=== PATIENT | male | born 1945 | race Caucasian/White ===

== ENCOUNTER 2018-01-01 13:33 | Outpatient (CLI) | payer MEDICARE, BC ==
[2018-01-01 15:31] LABS: Hemoglobin 14.5 g/dL (14.0-18.0); Mean Corpuscular HGB CONC 35.2 g/dL (32.0-36.0); Mean Corpuscular Hemoglobin 30.7 pg (27.0-31.0); Mean Corpuscular Volume 87.1 fL (78.0-98.0); Mean Platelet Volume 8.2 fL (7.4-10.4); Platelet Count 221 thou/uL (130-400); Red Blood Cell (RBC) Count 4.73 mill/uL (4.70-6.10); White Blood Cell (WBC) Count 9.4 thou/uL (4.8-10.8)
[2018-01-01 15:36] LABS: INR-International Normal Ratio 0.9; PTT 28.1 SEC (22.9-36.1); Prothrombin Time 11.9 SEC (12.0-14.7)
[2018-01-01 15:52] LABS: Anion Gap 20 mmol/L (10-20); BUN (Urea Nitrogen) 15 mg/dL (8.4-25.7); Calc. Creatinine Clearance 0 mL/min (70-130); Carbon Dioxide 21 mmol/L (23-31); Chloride 99 mmol/L (98-107); Estimated GFR-MDRD 73; Glucose 251 mg/dL (83-110); Potassium 3.6 mmol/L (3.5-5.1); Sodium 136 mmol/L (136-145)
== END 2018-01-01 13:34 | disposition home or self-care (01) ==
LOC: LABBT 13:33
PROVIDERS: ATTEND Internal Medicine Cardiovascular Disease
DX: Z01.818 Encounter for other preprocedural examination (principal); Z51.81 Encounter for therapeutic drug level monitoring; E78.00 Pure hypercholesterolemia, unspecified; Z79.01 Long term (current) use of anticoagulants
CPT/HCPCS: 80048; 85027; 85610; 85730

== ENCOUNTER 2018-01-04 12:11 | Day surgery (SDC) | payer MEDICARE, BC ==
[2018-01-01 14:11] VITALS: BMI 32.2
[2018-01-04] MEDS ORDERED: Lidocaine 1% (PF) 30 ML VIAL ONE (16:06)
[2018-01-04] MEDS ORDERED: CEFAZOLIN 1 GM VIAL ONE ×2 (16:07→16:08)
[2018-01-04] MEDS ORDERED: CEFAZOLIN/Water 2 GM/20 ML SYRINGE ONE (16:07)
[2018-01-04] MEDS ORDERED: Fentanyl 100 MCG/2 ML VIAL ONE (16:27)
[2018-01-04] MEDS ORDERED: Midazolam HCl 2 mg/2 ml Vial ONE (16:27)
[2018-01-04] MEDS ORDERED: Propofol 500 MG/50 ML VIAL ONE (16:27)
[2018-01-04] MEDS ORDERED: PROPOFOL 20 ML ONE (17:14)
--- NOTE | 2018-01-04 18:50 | RAD ---
CHEST ONE VIEW: HISTORY: Pacemaker adjustment. FINDINGS: The cardiac silhouette is magnified. It is partially obscured by an elevated right hemidiaphragm. T he pulmonary vasculature is slightly engorged. The mediastinum is midline. A dual-lead left-sided c ardiac defibrillator is in place. No evidence of pneumothorax. IMPRESSION: 1. Elevated right hemidiaphragm, cause not apparent. 2. Borderline pulmonary vascular congestion. POS: [facility]
== END 2018-01-04 19:47 | disposition home or self-care (01) ==
LOC: CCL 12:11
PROVIDERS: ATTEND Internal Medicine Cardiovascular Disease
PROC: 0JH60PZ Insertion of Cardiac Rhythm Related Device into Chest Subcutaneous Tissue and Fascia, Open Approach (ICD-10-PCS; principal; 2018-01-04)
DX: I42.8 Other cardiomyopathies (principal); I11.0 Hypertensive heart disease with heart failure; I50.22 Chronic systolic (congestive) heart failure; E11.9 Type 2 diabetes mellitus without complications; E78.5 Hyperlipidemia, unspecified; Z79.82 Long term (current) use of aspirin; Z79.84 Long term (current) use of oral hypoglycemic drugs; Z79.899 Other long term (current) drug therapy; Z88.8 Allergy status to other drugs, medicaments and biological substances
CPT/HCPCS: 33216; 71045; 93642; C1896; J0690; J2001; J2250; J2704; J3010; J3490

== ENCOUNTER 2019-03-15 10:54 | Outpatient (CLI) | payer MEDICARE, BC ==
[2019-03-15 13:36] LABS: #Basophils 0.1 thou/uL (0.0-0.2); #Eosinphils 0.1 thou/uL (0.0-0.7); #Lymphocytes 1.8 thou/uL (1.20-3.40); #Monocytes 1.2 thou/uL (0.11-0.59); #Neutrophils 8.7 thou/uL (1.40-6.50); %Basophils 0.8 % (0.0-1.0); %Eosinophils 1.2 % (0.0-10.0); %Monocytes 9.9 % (0.0-10.0); %Neutrophils 73.2 % (42.0-75.0); Hemoglobin 16.4 g/dL (14.0-18.0); Mean Corpuscular HGB CONC 34.3 g/dL (32.0-36.0); Mean Corpuscular Volume 87.3 fL (78.0-98.0); Mean Platelet Volume 9.1 fL (7.4-10.4); Platelet Count 252 thou/uL (130-400); Red Blood Cell (RBC) Count 5.49 mill/uL (4.70-6.10); White Blood Cell (WBC) Count 11.9 thou/uL (4.8-10.8)
[2019-03-15 14:12] LABS: ALT (SGPT) 16 U/L (8-55); AST (SGOT) 11 U/L (5-34); Albumin 4.7 g/dL (3.4-4.8); Alkaline Phosphatase 113 U/L (40-110); Anion Gap 21 mmol/L (10-20); BUN (Urea Nitrogen) 38 mg/dL (8.4-25.7); Bilirubin, Total 1.4 mg/dL (0.2-1.2); Calc. Creatinine Clearance 0 mL/min (70-130); Calcium 9.5 mg/dL (7.8-10.44); Carbon Dioxide 20 mmol/L (23-31); Chloride 94 mmol/L (98-107); Estimated GFR-MDRD 37; Globulin 2.6 g/dL (2.4-3.5); Glucose 427 mg/dL (83-110); Potassium 4.6 mmol/L (3.5-5.1); Protein, Total 7.3 g/dL (5.8-8.1); Sodium 130 mmol/L (136-145)
--- NOTE | 2019-03-16 07:18 | EKG ---
Test Reason : Blood Pressure : / mmHG Vent. Rate : 077 BPM Atrial Rate : 077 BPM P-R Int : 200 ms QRS Dur : 102 ms QT Int : 430 ms P-R-T Axes : 048 -16 -11 degrees QTc Int : 486 ms Normal sinus rhythm Cannot rule out Anterior infarct , age undetermined Nonspecific ST-T changes Abnormal ECG When compared with ECG of 21-NOV-2010 15:10, Minimal criteria for Anterior infarct are now Present Confirmed by DR. Yisel MATTHEW ([id number]) on 03/16/2019 7:17:40 AM Referred By: CHLOE Confirmed By:DR. Yisel MATTHEW
== END 2019-03-15 10:55 | disposition home or self-care (01) ==
LOC: LABBT 10:54
PROVIDERS: ATTEND Internal Medicine Cardiovascular Disease
DX: Z01.818 Encounter for other preprocedural examination (principal); R94.39 Abnormal result of other cardiovascular function study
CPT/HCPCS: 80053; 85025; 93005; 93010

== ENCOUNTER 2019-03-16 06:04 | Observation (INO) | payer MEDICARE, BC ==
[2019-03-15 11:14] VITALS: BMI 31.5
[2019-03-16] MEDS ORDERED: Heparin 0 ML ONE (06:39)
[2019-03-16] MEDS ORDERED: Heparin 10,000 UNITS/1 ML VIAL ONE (06:40)
[2019-03-16] MEDS ORDERED: Lidocaine 1% (PF) 30 ML VIAL ONE (06:40)
[2019-03-16 06:59] LABS: Cardiac Risk 3.3 (Less than 4.5)
[2019-03-16] MEDS ORDERED: Midazolam HCl 2 mg/2 ml Vial ONE (07:04)
[2019-03-16] MEDS ORDERED: Fentanyl 100 MCG/2 ML VIAL ONE (07:04)
[2019-03-16] MEDS ORDERED: Protamine Sulfate 50 MG/5 ML VIAL ONE (07:23)
[2019-03-16] MEDS ORDERED: Nitroglycerin 0.4 MG TAB (25 Tab Bottle) SL PRN (07:27)
[2019-03-16] MEDS ORDERED: Sodium Chloride 0.9% 200 ML IV PRN (07:27)
[2019-03-16] MEDS ORDERED: Acetaminophen/Codeine 30-300mg Tablet PO PRN ×2 (07:27)
[2019-03-16] MEDS ORDERED: Acetaminophen 500 MG TAB PO PRN (07:30)
[2019-03-16] MEDS ORDERED: Sodium Chloride 0.9% 1,000 ML IV SCH ×2 (07:30→13:00)
[2019-03-16] MEDS ORDERED: Allopurinol 300 MG TAB PO SCH (07:45)
[2019-03-16] MEDS ORDERED: Dextrose 5% in Water 1,000 ML IV PRN (07:46)
[2019-03-16] MEDS ORDERED: Dextrose 50% Abboject 50 ML SYRINGE SLOW IVP PRN (07:46)
[2019-03-16] MEDS ORDERED: Iopamidol 370 76% 100 ML VIAL ONE (09:22)
[2019-03-16] MEDS: Carvedilol 6.25 MG TAB PO SCH ×2 (10:58→17:03)
[2019-03-16] MEDS: glyBURIDE 5 MG TAB PO SCH (10:59)
[2019-03-16] MEDS: Insulin Regular 300 UNITS/3 ML VIAL SC PRN ×3 (10:59→21:27)
[2019-03-16] MEDS: Aspirin 81 mg Enteric Coated Tablet PO SCH (10:59)
[2019-03-16] MEDS: Bupropion 150 MG XL TAB PO SCH ×2 (10:59→21:27)
[2019-03-16] MEDS: Ivabradine 5 MG TAB PO SCH ×2 (11:02→21:27)
[2019-03-16] MEDS: Furosemide 80 MG TAB PO SCH (14:38)
--- NOTE | 2019-03-16 15:48 | NM ---
Exam: Nuclear medicine ventilation/perfusion scan HISTORY: Shortness of breath COMPARISON: none TECHNIQUE: Ventilation imagin.7 mCi of xenon gas Perfusion imagin.7 cm of technetium 99m MAA. FINDINGS: Ventilation imaging: Appropriate radiotracer uptake on the ventilation images. No significant radiotr acer retention Perfusion imaging: Homogeneous distribution of the radiotracer. Matched filling defect due to left-sided pacer There are no ventilation/perfusion mismatches IMPRESSION: Normal exam
--- NOTE | 2019-03-16 15:51 | RAD ---
XR Chest Pa Lat STANDARD History: Shortness of breath Comparison: Radiograph March 03, 2019 Findings: Chronic elevation right hemidiaphragm. Single-lead pacer is similar. No confluent airspace consolidation, pneumothorax, or effusion. Coil projects over the left lateral hemithorax. Impression: No acute intrathoracic abnormality.
[2019-03-16] MEDS ORDERED: Atorvastatin Calcium 10 MG TAB PO SCH (21:00)
[2019-03-17 06:09] LABS: Anion Gap 14 mmol/L (10-20); BUN (Urea Nitrogen) 27 mg/dL (8.4-25.7); Calc. Creatinine Clearance 82 mL/min (70-130); Calcium 8.7 mg/dL (7.8-10.44); Carbon Dioxide 26 mmol/L (23-31); Chloride 99 mmol/L (98-107); Estimated GFR-MDRD 62; Glucose 217 mg/dL (83-110); Potassium 3.2 mmol/L (3.5-5.1); Sodium 136 mmol/L (136-145)
[2019-03-17] MEDS: Insulin Regular 300 UNITS/3 ML VIAL SC PRN (06:35)
[2019-03-17] MEDS ORDERED: Spironolactone 25 MG TAB PO SCH (08:00)
[2019-03-17 08:10] VITALS: TEMP 97.5
[2019-03-17] MEDS: Aspirin 81 mg Enteric Coated Tablet PO SCH (08:43)
[2019-03-17] MEDS: Carvedilol 6.25 MG TAB PO SCH (08:43)
[2019-03-17] MEDS: Ivabradine 5 MG TAB PO SCH (08:43)
[2019-03-17] MEDS: Bupropion 150 MG XL TAB PO SCH (08:43)
[2019-03-17] MEDS: Furosemide 80 MG TAB PO SCH (08:43)
[2019-03-17] MEDS: glyBURIDE 5 MG TAB PO SCH (08:44)
[2019-03-17] MEDS ORDERED: Allopurinol 300 MG TAB PO SCH (09:00)
[2019-03-17 11:56] VITALS: BP 121/68
--- NOTE | 2019-03-17 12:12 | DIS ---
DATE OF ADMISSION: 03/16/2019 DATE OF DISCHARGE: 03/17/2019 These are discharge diagnoses after 24-hour observation. DISCHARGE DIAGNOSES: 1. Minimal coronary artery disease. 2. Exertional dyspnea with stable ejection fraction and PFTs with FVC of 65% and FEV1 of 72%. 3. Normal ventilation/perfusion scan. 4. Nonischemic cardiomyopathy with ejection fraction of 20% to 25% improving to 35% to 40%. 5. Entresto stopped with an episode of renal failure associated with sepsis requiring dialysis for a short period of time. 6. Fatigue with increasing Corlanor to 7.5 b.i.d. 7. Single-chamber implantable cardioverter-defibrillator with extra coil placed due to failure to rescue during defibrillation threshold testing. 8. Hypercholesterolemia under good control. 9. Hypertension. 10. Positive family history. 11. Former smoker. 12. Chronic kidney disease with creatinine of 1.80 falling to 1.16 with hydration. 13. Diabetes. DISCHARGE MEDICATIONS: 1. Albuterol 2 puffs q.6 hours p.r.n. 2. Metformin 1000 mg b.i.d., will be restarted 48 hours after catheterization. 3. Tylenol p.r.n. 4. Allopurinol 300 mg daily. 5. Ecotrin 81 mg daily. 6. Atorvastatin 10 mg daily. 7. Bupropion 150 mg XL b.i.d. 8. Carvedilol 12.5 mg b.i.d. 9. Furosemide 80 mg b.i.d. 10. Glyburide 5 mg 2 tablets daily. 11. Corlanor 5 mg b.i.d. 12. Nitroglycerin p.r.n. 13. Spironolactone 25 mg q.a.m. DISCHARGE DISPOSITION: Arrangements to be made for Pulmonary consultation as an outpatient. He will be seen in the office in 1 month with ICD check. HOSPITAL COURSE: Mr. Garcia had been having problems with increasing dyspnea and at times some chest pressure. Cardiac PET scan revealed a fixed inferior wall defect. He underwent cardiac catheterization using 38 mL of contrast. The left main was normal. There was a 20% proximal LAD. The circumflex was normal. The right coronary artery had a 50% proximal stenosis. Due to a creatinine of 1.80, he was hydrated overnight, and creatinine the morning after catheterization was 1.16. He underwent ventilation/perfusion scan, which revealed low probability for pulmonary embolism. He also underwent pulmonary function testing, which revealed mild reduction in forced vital capacity. He was sent home with albuterol inhaler to use p.r.n., and will seek further evaluation by boat officer. Job ID: [id number] MTDD
== END 2019-03-17 11:25 | disposition home or self-care (01) ==
LOC: CCL 06:04 → 2SW 07:27 → EEVIPCON 11:30
PROVIDERS: ADMIT Internal Medicine Cardiovascular Disease; ATTEND Internal Medicine Cardiovascular Disease
PROC: 4A023N7 Measurement of Cardiac Sampling and Pressure, Left Heart, Percutaneous Approach (ICD-10-PCS; principal; 2019-03-16)
PROC: B2111ZZ Fluoroscopy of Multiple Coronary Arteries using Low Osmolar Contrast (ICD-10-PCS; 2019-03-16)
DX: I25.110 Atherosclerotic heart disease of native coronary artery with unstable angina pectoris (principal); E78.00 Pure hypercholesterolemia, unspecified; E78.5 Hyperlipidemia, unspecified; I42.9 Cardiomyopathy, unspecified; I12.9 Hypertensive chronic kidney disease with stage 1 through stage 4 chronic kidney disease, or unspecified chronic kidney disease; E11.22 Type 2 diabetes mellitus with diabetic chronic kidney disease; N18.3 Chronic kidney disease, stage 3 (moderate); Z87.891 Personal history of nicotine dependence; Z79.82 Long term (current) use of aspirin; Z79.84 Long term (current) use of oral hypoglycemic drugs; Z79.899 Other long term (current) drug therapy; Z88.4 Allergy status to anesthetic agent; Z95.810 Presence of automatic (implantable) cardiac defibrillator
CPT/HCPCS: 71046; 78582; 80048; 80061; 82962; 85347; 93454; 93798; 94010; 94727; 96360; 96361 ×2; A9540; A9558; C1769; G0378 ×2; 36415; 36416; 99152; J1644; J1815; J2001; J2250; J2720; J3010; Q9967

== ENCOUNTER 2019-06-06 10:55 | Day surgery (SDC) | payer MEDICARE, BC ==
[2019-06-03 12:09] VITALS: BMI 31.7
[~2019-06-06 10:55] MED LIST: PROPOFOL 200 MG/20 ML VIAL ONE
--- NOTE | 2019-06-06 17:17 | OP ---
DATE OF PROCEDURE: 06/06/2019 PROCEDURES PERFORMED: 1. Esophagogastroduodenoscopy. 2. Colonoscopy with polypectomy and biopsy. PREMEDICATION: Given by Anesthesiology Department. PREPROCEDURE DIAGNOSES: 1. Unexplained diarrhea. 2. Weight loss. 3. Abdominal pain. POSTPROCEDURE DIAGNOSES: 1. Normal upper endoscopy. 2. Mild diverticulosis coli. 3. Sigmoid polyp, 5 mm. 4. Otherwise, normal colonoscopy. DESCRIPTION OF PROCEDURE: Written consents were obtained prior to procedure. After adequate sedation, forward-viewing endoscope was advanced down the stomach under direct vision to the third portion of duodenum. The duodenum appeared normal. The pylorus was patent. The gastric antrum, body, fundus, and cardia all appeared normal. GE junction located at 41 cm from the incisors. The Z-line was normal. The lower, mid, and upper esophagus appeared normal. The patient was then repositioned for colonoscopy. Rectal exam performed was normal. The endoscope was advanced to the cecum. The quality of the bowel prep was good. The cecum, ascending colon, hepatic flexure, transverse colon, splenic flexure, descending colon, and sigmoid colon appeared normal. Few scattered diverticula were noted. Biopsy was obtained from the right and left colon to evaluate for microscopic colitis. In the distal sigmoid colon, a 5 mm sessile polyp was noted and was removed with cold snare and retrieved. The rectal vault appeared normal including retroflexion. ASSESSMENT: 1. Normal upper endoscopy. 2. Sigmoid polyp and mild diverticulosis coli; otherwise, normal colon exam. PLAN: Await biopsy results. Job ID: [id number]
== END 2019-06-06 14:50 | disposition home or self-care (01) ==
LOC: SDC 10:55
PROVIDERS: ATTEND Internal Medicine Gastroenterology
PROC: 0DJ08ZZ Inspection of Upper Intestinal Tract, Via Natural or Artificial Opening Endoscopic (ICD-10-PCS; principal; 2019-06-06)
PROC: 0DBN8ZX Excision of Sigmoid Colon, Via Natural or Artificial Opening Endoscopic, Diagnostic (ICD-10-PCS; 2019-06-06)
PROC: 0DBG8ZX Excision of Left Large Intestine, Via Natural or Artificial Opening Endoscopic, Diagnostic (ICD-10-PCS; 2019-06-06)
PROC: 0DBF8ZX Excision of Right Large Intestine, Via Natural or Artificial Opening Endoscopic, Diagnostic (ICD-10-PCS; 2019-06-06)
DX: D12.5 Benign neoplasm of sigmoid colon (principal); K57.30 Diverticulosis of large intestine without perforation or abscess without bleeding; R63.4 Abnormal weight loss; I50.9 Heart failure, unspecified; M10.9 Gout, unspecified; E78.5 Hyperlipidemia, unspecified; E11.9 Type 2 diabetes mellitus without complications; Z87.891 Personal history of nicotine dependence; Z79.82 Long term (current) use of aspirin; Z79.84 Long term (current) use of oral hypoglycemic drugs; Z79.899 Other long term (current) drug therapy; Z88.8 Allergy status to other drugs, medicaments and biological substances; Z95.810 Presence of automatic (implantable) cardiac defibrillator
CPT/HCPCS: 88305; J2704

== ENCOUNTER 2021-10-14 14:11 | Inpatient (IN) | payer MEDICARE, BC ==
[2021-10-14 14:32] LABS: #Basophils 0.1 thou/uL (0.0-0.2); #Eosinphils 0.3 thou/uL (0.0-0.7); #Lymphocytes 1.5 thou/uL (1.20-3.40); #Monocytes 0.8 thou/uL (0.11-0.59); %Basophils 0.9 % (0.0-1.0); %Eosinophils 3.2 % (0.0-10.0); %Lymphocytes 17.6 % (21.0-51.0); %Monocytes 9.3 % (0.0-10.0); Hemoglobin 15.2 g/dL (14.0-18.0); Mean Corpuscular HGB CONC 32.6 g/dL (32.0-36.0); Mean Corpuscular Hemoglobin 30.4 pg (27.0-31.0); Platelet Count 161 thou/uL (130-400); RBC Distribution Width 12.6 % (11.5-14.5); White Blood Cell (WBC) Count 8.6 thou/uL (4.8-10.8)
[2021-10-14 14:55] LABS: ALT (SGPT) 106 U/L (8-55); AST (SGOT) 161 U/L (5-34); Albumin 3.9 g/dL (3.4-4.8); Alkaline Phosphatase 140 U/L (40-110); Anion Gap 14 mmol/L (10-20); BUN (Urea Nitrogen) 19 mg/dL (8.4-25.7); Bilirubin, Total 1.2 mg/dL (0.2-1.2); Calc. Creatinine Clearance 0 mL/min (70-130); Calcium 8.4 mg/dL (7.8-10.44); Carbon Dioxide 20 mmol/L (23-31); Chloride 107 mmol/L (98-107); Globulin 2.3 g/dL (2.4-3.5); Glucose 225 mg/dL (83-110); Lipase 83 U/L (8-78); Potassium 4.2 mmol/L (3.5-5.1); Protein, Total 6.2 g/dL (5.8-8.1); Sodium 137 mmol/L (136-145)
[2021-10-14] MEDS ORDERED: Aspirin Chewable 81 MG TAB ONE ×2 (16:33→16:35)
[2021-10-14] MEDS ORDERED: HYDROcodone/Acetaminophen 7.5/325 mg Tablet PO PRN (20:11)
[2021-10-14] MEDS ORDERED: Dextrose 5% in Water 1,000 ML IV PRN (20:11)
[2021-10-14] MEDS ORDERED: Bisacodyl 10 MG SUPP PR PRN (20:11)
[2021-10-14] MEDS ORDERED: Zolpidem Tartrate 5 MG TAB PO PRN (20:11)
[2021-10-14] MEDS ORDERED: HumaLOG 300 UNITS/3 ML VIAL SC PRN (20:11)
[2021-10-14] MEDS ORDERED: Dextrose 50% Abboject 50 ML SYRINGE SLOW IVP PRN (20:11)
[2021-10-14 20:32] VITALS: BMI 32.1
[2021-10-14 21:05] LABS: Troponin I Less than 0.010 ng/mL (< 0.028)
[2021-10-14] MEDS ORDERED: Nitroglycerin 0.4 MG TAB (25 Tab Bottle) SL PRN (21:45)
[2021-10-14] MEDS ORDERED: Allopurinol 100 MG TAB PO SCH (21:45)
[2021-10-14] MEDS ORDERED: Dulaglutide [Trulicity] 1.5 MG/0.5 ML Pen.Injctr SC SCH (21:45)
[2021-10-14] MEDS ORDERED: Carvedilol 6.25 MG TAB PO SCH ×2 (22:45)
[2021-10-14] MEDS ORDERED: Bupropion 150 MG XL TAB PO SCH (22:45)
[2021-10-14] MEDS: Ivabradine 5 MG TAB PO SCH (23:00)
[2021-10-14] MEDS: Nitroglycerin 2% Ointment 1 INCH/1 GM Packet TOP SCH (23:20)
[2021-10-15 00:02] LABS: Troponin I Less than 0.010 ng/mL (< 0.028)
[2021-10-15 05:23] LABS: #Eosinphils 0.3 thou/uL (0.0-0.7); #Lymphocytes 1.2 thou/uL (1.20-3.40); #Monocytes 0.8 thou/uL (0.11-0.59); #Neutrophils 5.1 thou/uL (1.40-6.50); %Basophils 0.7 % (0.0-1.0); %Eosinophils 4.3 % (0.0-10.0); %Lymphocytes 15.8 % (21.0-51.0); %Monocytes 11.2 % (0.0-10.0); %Neutrophils 68.1 % (42.0-75.0); Mean Corpuscular Hemoglobin 30.6 pg (27.0-31.0); Mean Corpuscular Volume 92.5 fL (78.0-98.0); Mean Platelet Volume 7.8 fL (7.4-10.4); Platelet Count 155 thou/uL (130-400); RBC Distribution Width 12.6 % (11.5-14.5); Red Blood Cell (RBC) Count 4.58 mill/uL (4.70-6.10); White Blood Cell (WBC) Count 7.5 thou/uL (4.8-10.8)
[2021-10-15 05:48] LABS: ALT (SGPT) 439 U/L (8-55); AST (SGOT) 229 U/L (5-34); Albumin 3.6 g/dL (3.4-4.8); Alkaline Phosphatase 200 U/L (40-110); Anion Gap 11 mmol/L (10-20); BUN (Urea Nitrogen) 20 mg/dL (8.4-25.7); Bilirubin, Total 0.7 mg/dL (0.2-1.2); Calc. Creatinine Clearance 83 mL/min (70-130); Calcium 8.3 mg/dL (7.8-10.44); Carbon Dioxide 21 mmol/L (23-31); Cardiac Risk 2.8 (Less than 4.5); Chloride 111 mmol/L (98-107); Cholesterol 121 mg/dl (< 200 Desired); Globulin 2.2 g/dL (2.4-3.5); Glucose 165 mg/dL (83-110); HDL Cholesterol 44 mg/dL (>60 Neg Risk); LDL Cholesterol, Calculated 64 mg/dL; Protein, Total 5.8 g/dL (5.8-8.1); Sodium 139 mmol/L (136-145); Triglycerides 63 mg/dL (Less than 150)
[2021-10-15] MEDS: Nitroglycerin 2% Ointment 1 INCH/1 GM Packet TOP SCH ×2 (06:21→14:56)
[2021-10-15] MEDS ORDERED: Carvedilol 6.25 MG TAB PO SCH (08:00)
[2021-10-15] MEDS: Aspirin 81 mg Enteric Coated Tablet PO SCH (08:18)
[2021-10-15] MEDS: Bupropion 150 MG XL TAB PO SCH ×2 (08:19→21:35)
[2021-10-15] MEDS: Ascorbic Acid 500 mg Chewable Tablet PO SCH (08:19)
[2021-10-15] MEDS: Clopidogrel Bisulfate 75 MG TAB PO SCH (08:19)
[2021-10-15] MEDS: Potassium Chloride 10 MEQ TAB PO SCH (08:20)
[2021-10-15] MEDS: Zinc Sulfate 220 MG CAP PO SCH (08:20)
[2021-10-15] MEDS: Spironolactone 25 MG TAB PO SCH (08:21)
[2021-10-15] MEDS: Enoxaparin Sodium 40 MG/0.4 ML SYRINGE SC SCH (08:22)
[2021-10-15] MEDS: Empagliflozin 25 MG TAB PO SCH (08:26)
[2021-10-15] MEDS: glyBURIDE 5 MG TAB PO SCH (08:27)
[2021-10-15] MEDS ORDERED: Aspirin Chewable 81 MG TAB PO SCH (09:00)
[2021-10-15] MEDS: Carvedilol 6.25 MG TAB PO SCH ×2 (09:00→17:25)
[2021-10-15] MEDS ORDERED: Non-Formulary Item 1 EACH (Ascorbic Acid [Vitamin C] 1,000 MG Tablet) PO SCH (09:00)
[2021-10-15] MEDS ORDERED: Iopamidol 370 76% 100 ML VIAL ONE (09:27)
[2021-10-15] MEDS: Cholecalciferol 1,000 UNITS (25 MCG) TAB PO SCH (10:12)
[2021-10-15] MEDS: Ivabradine 5 MG TAB PO SCH ×2 (10:12→21:35)
[2021-10-15] MEDS: Icosapent Ethyl 1 GM CAPSULE PO SCH ×2 (10:13→17:25)
[2021-10-15] MEDS: Furosemide 80 MG TAB PO SCH (10:13)
[2021-10-15] MEDS: HumaLOG 300 UNITS/3 ML VIAL SC PRN (17:26)
[2021-10-15] MEDS ORDERED: Nitroglycerin 2% Ointment 1 INCH/1 GM Packet TOP PRN (18:00)
[2021-10-16] MEDS: HumaLOG 300 UNITS/3 ML VIAL SC PRN ×3 (05:49→16:45)
[2021-10-16] MEDS: Empagliflozin 25 MG TAB PO SCH (08:08)
[2021-10-16] MEDS: Aspirin 81 mg Enteric Coated Tablet PO SCH (08:08)
[2021-10-16] MEDS: glyBURIDE 5 MG TAB PO SCH (08:08)
[2021-10-16] MEDS: Potassium Chloride 10 MEQ TAB PO SCH (08:08)
[2021-10-16] MEDS: Icosapent Ethyl 1 GM CAPSULE PO SCH ×2 (08:09→16:45)
[2021-10-16] MEDS: Cholecalciferol 1,000 UNITS (25 MCG) TAB PO SCH (08:09)
[2021-10-16] MEDS: Clopidogrel Bisulfate 75 MG TAB PO SCH (08:09)
[2021-10-16] MEDS: Spironolactone 25 MG TAB PO SCH (08:10)
[2021-10-16] MEDS: Zinc Sulfate 220 MG CAP PO SCH (08:10)
[2021-10-16] MEDS: Carvedilol 6.25 MG TAB PO SCH ×2 (08:10→16:45)
[2021-10-16] MEDS: Furosemide 80 MG TAB PO SCH (08:10)
[2021-10-16] MEDS: Enoxaparin Sodium 40 MG/0.4 ML SYRINGE SC SCH (08:11)
[2021-10-16] MEDS: Ivabradine 5 MG TAB PO SCH ×2 (08:11→21:22)
[2021-10-16] MEDS: Bupropion 150 MG XL TAB PO SCH ×2 (08:11→21:22)
[2021-10-16] MEDS: Ascorbic Acid 500 mg Chewable Tablet PO SCH (08:11)
[2021-10-16] MEDS ORDERED: Furosemide 40 MG/4 ML VIAL SLOW IVP SCH ×2 (08:45→09:00)
[2021-10-16 09:21] LABS: Anion Gap 13 mmol/L (10-20); BUN (Urea Nitrogen) 26 mg/dL (8.4-25.7); Calc. Creatinine Clearance 82 mL/min (70-130); Calcium 9.4 mg/dL (7.8-10.44); Carbon Dioxide 22 mmol/L (23-31); Chloride 106 mmol/L (98-107); Glucose 199 mg/dL (83-110); Sodium 137 mmol/L (136-145)
[2021-10-16] MEDS ORDERED: Furosemide 100 MG/10 ML VIAL FS SCH (14:00)
[2021-10-17 04:58] LABS: #Basophils 0.1 thou/uL (0.0-0.2); #Eosinphils 0.4 thou/uL (0.0-0.7); #Lymphocytes 2.1 thou/uL (1.20-3.40); #Neutrophils 5.2 thou/uL (1.40-6.50); %Basophils 0.8 % (0.0-1.0); %Eosinophils 4.7 % (0.0-10.0); %Lymphocytes 23.8 % (21.0-51.0); %Monocytes 11.4 % (0.0-10.0); %Neutrophils 59.3 % (42.0-75.0); Hemoglobin 16.3 g/dL (14.0-18.0); Mean Corpuscular HGB CONC 32.9 g/dL (32.0-36.0); Mean Corpuscular Hemoglobin 30.5 pg (27.0-31.0); Mean Corpuscular Volume 92.6 fL (78.0-98.0); Mean Platelet Volume 8.3 fL (7.4-10.4); Platelet Count 177 thou/uL (130-400); RBC Distribution Width 12.7 % (11.5-14.5); Red Blood Cell (RBC) Count 5.34 mill/uL (4.70-6.10); White Blood Cell (WBC) Count 8.7 thou/uL (4.8-10.8)
[2021-10-17 05:24] LABS: ALT (SGPT) 200 U/L (8-55); AST (SGOT) 25 U/L (5-34); Albumin 4.2 g/dL (3.4-4.8); Alkaline Phosphatase 162 U/L (40-110); Anion Gap 16 mmol/L (10-20); BUN (Urea Nitrogen) 31 mg/dL (8.4-25.7); Bilirubin, Total 0.7 mg/dL (0.2-1.2); Calc. Creatinine Clearance 68 mL/min (70-130); Calcium 9.3 mg/dL (7.8-10.44); Carbon Dioxide 21 mmol/L (23-31); Chloride 105 mmol/L (98-107); Globulin 2.9 g/dL (2.4-3.5); Glucose 152 mg/dL (83-110); Potassium 3.4 mmol/L (3.5-5.1); Protein, Total 7.1 g/dL (5.8-8.1); Sodium 139 mmol/L (136-145)
[2021-10-17] MEDS: Furosemide 100 MG/10 ML VIAL SLOW IVP SCH ×2 (06:09→14:19)
[2021-10-17] MEDS ORDERED: Potassium Chloride 20 MEQ TAB PO SCH (08:15)
[2021-10-17] MEDS: glyBURIDE 5 MG TAB PO SCH (09:00)
[2021-10-17] MEDS: Carvedilol 6.25 MG TAB PO SCH (09:00)
[2021-10-17] MEDS: Icosapent Ethyl 1 GM CAPSULE PO SCH (09:01)
[2021-10-17] MEDS: Ascorbic Acid 500 mg Chewable Tablet PO SCH (09:02)
[2021-10-17] MEDS: Aspirin 81 mg Enteric Coated Tablet PO SCH (09:02)
[2021-10-17] MEDS: Cholecalciferol 1,000 UNITS (25 MCG) TAB PO SCH (09:03)
[2021-10-17] MEDS: Bupropion 150 MG XL TAB PO SCH (09:03)
[2021-10-17] MEDS: Clopidogrel Bisulfate 75 MG TAB PO SCH (09:03)
[2021-10-17] MEDS: Potassium Chloride 10 MEQ TAB PO SCH (09:04)
[2021-10-17] MEDS: Enoxaparin Sodium 40 MG/0.4 ML SYRINGE SC SCH (09:04)
[2021-10-17] MEDS: Zinc Sulfate 220 MG CAP PO SCH (09:05)
[2021-10-17] MEDS: Spironolactone 25 MG TAB PO SCH (09:05)
[2021-10-17] MEDS: Empagliflozin 25 MG TAB PO SCH (11:34)
[2021-10-17] MEDS: Ivabradine 5 MG TAB PO SCH (11:34)
[2021-10-17] MEDS: HumaLOG 300 UNITS/3 ML VIAL SC PRN (11:37)
[2021-10-17 11:44] VITALS: BP 120/74; TEMP 97.5
== END 2021-10-17 15:04 | disposition home or self-care (01) | DRG 313 ==
LOC: ERS 14:11 → 2SW 18:01 → OBSVTOIN 10-16 14:55
PROVIDERS: ADMIT Internal Medicine; ATTEND Internal Medicine
DX: R07.9 Chest pain, unspecified (principal); I13.0 Hypertensive heart and chronic kidney disease with heart failure and stage 1 through stage 4 chronic kidney disease, or unspecified chronic kidney disease; I50.22 Chronic systolic (congestive) heart failure; I25.5 Ischemic cardiomyopathy; E11.22 Type 2 diabetes mellitus with diabetic chronic kidney disease; I25.10 Atherosclerotic heart disease of native coronary artery without angina pectoris; E78.5 Hyperlipidemia, unspecified; E78.00 Pure hypercholesterolemia, unspecified; K76.1 Chronic passive congestion of liver; N18.30 Chronic kidney disease, stage 3 unspecified; Z96.653 Presence of artificial knee joint, bilateral; Z20.822 Contact with and (suspected) exposure to COVID-19; Z95.810 Presence of automatic (implantable) cardiac defibrillator; Z88.8 Allergy status to other drugs, medicaments and biological substances; Z79.82 Long term (current) use of aspirin; Z79.899 Other long term (current) drug therapy; Z79.84 Long term (current) use of oral hypoglycemic drugs; Z90.49 Acquired absence of other specified parts of digestive tract; Z98.890 Other specified postprocedural states; Z87.891 Personal history of nicotine dependence; Z82.49 Family history of ischemic heart disease and other diseases of the circulatory system; Z91.14 Patient's other noncompliance with medication regimen; Z98.42 Cataract extraction status, left eye; Z98.41 Cataract extraction status, right eye
CPT/HCPCS: 36415; 36416; 71045; 71275; 76705; 80048; 80053; 80061; 83690; 83880; 84484; 85025; 85379; 93005; 93306; 94760; J1650; J1815; J1940; Q9967; U0003; U0005

== ENCOUNTER 2022-09-09 15:33 | Emergency (ER) | payer MEDICARE, BC ==
[2022-09-09 16:14] LABS: #Basophils 0.1 thou/uL (0.0-0.2); #Eosinphils 0.2 thou/uL (0.0-0.7); #Lymphocytes 1.9 thou/uL (1.20-3.40); #Monocytes 1.1 thou/uL (0.11-0.59); #Neutrophils 7.9 thou/uL (1.40-6.50); %Basophils 0.7 % (0.0-1.0); %Eosinophils 1.5 % (0.0-10.0); %Lymphocytes 17.1 % (21.0-51.0); %Monocytes 9.5 % (0.0-10.0); %Neutrophils 71.2 % (42.0-75.0); Hemoglobin 16.3 g/dL (14.0-18.0); Mean Corpuscular HGB CONC 32.1 g/dL (32.0-36.0); Mean Corpuscular Hemoglobin 29.5 pg (27.0-31.0); Mean Corpuscular Volume 91.7 fl (78.0-98.0); Platelet Count 224 10x3/uL (130-400); RBC Distribution Width 12.3 % (11.5-14.5); Red Blood Cell (RBC) Count 5.53 mill/uL (4.70-6.10); White Blood Cell (WBC) Count 11.2 10x3/uL (4.8-10.8)
[2022-09-09 16:34] LABS: ALT (SGPT) 23 U/L (8-55); AST (SGOT) 23 U/L (5-34); Albumin 4.7 g/dL (3.4-4.8); Alkaline Phosphatase 106 U/L (40-110); Anion Gap 20 mmol/L (10-20); BUN (Urea Nitrogen) 32 mg/dL (8.4-25.7); Bilirubin, Total 1.1 mg/dL (0.2-1.2); Calc. Creatinine Clearance 0 mL/min (70-130); Calcium 9.8 mg/dL (7.8-10.44); Carbon Dioxide 20 mmol/L (23-31); Chloride 100 mmol/L (98-107); Estimated GFR 40; Globulin 3.2 g/dL (2.4-3.5); Glucose 215 mg/dL (83-110); Lipase 79 U/L (8-78); Magnesium 2.2 mg/dL (1.6-2.6); Potassium 4.7 mmol/L (3.5-5.1); Protein, Total 7.9 g/dL (5.8-8.1); Sodium 135 mmol/L (136-145)
[2022-09-09] MEDS ORDERED: Aspirin Chewable 81 MG TAB ONE (16:39)
== END 2022-09-09 19:40 | disposition home or self-care (01) ==
LOC: ERS 15:33
DX: R07.9 Chest pain, unspecified (principal); D72.829 Elevated white blood cell count, unspecified; E11.9 Type 2 diabetes mellitus without complications; I50.9 Heart failure, unspecified; Z79.82 Long term (current) use of aspirin; Z79.899 Other long term (current) drug therapy
CPT/HCPCS: 71045; 80053; 83690; 83735; 83880; 84484; 85025; 93005